=== PATIENT | female | born 1925 | race Caucasian/White ===

== ENCOUNTER 2016-08-25 19:39 | Emergency (ER) | payer MEDICARE, BC ==
[~2016-08-25] VITALS: Ht 160 cm; Wt 56.5 kg
[2016-08-25] MEDS ORDERED: ALEN1TAB48 PO (19:47)
[2016-08-25] MEDS ORDERED: ADVA250A INH (19:47)
[2016-08-25] MEDS ORDERED: ASPI81CH37 CHEW (19:47)
[2016-08-25] MEDS ORDERED: MULT1TAB84 PO (19:47)
[2016-08-25] MEDS ORDERED: OXYGEN INH (19:47)
[2016-08-25] MEDS ORDERED: LOTR5CAP2 PO (19:47)
[2016-08-25] MEDS ORDERED: SIMV40TA PO (19:47)
[2016-08-25] MEDS ORDERED: OMEP20TA PO (19:47)
[2016-08-25 19:48] VITALS: BP 106/53; PULSE 84; RESP 20; TEMP 97.7; O2SAT 94
[2016-08-25 20:40] VITALS: BP 109/49; PULSE 68; RESP 20; O2SAT 94
[2016-08-25] MEDS ORDERED: SILVER NITR/POTASSIUM NITRATE APPLICATORS TOPICAL ONE (21:30)
--- NOTE | 2016-08-25 21:40 | PD ---
HPI Chief Complaint: Nosebleed Time Seen by Provider: 21:19 Travel History International Travel<30 days: No Contact w/Intl Traveler<30days: No Traveled to known affect area: No History of Present Illness HPI 89-year-old female presents to the emergency department by private transportation the care of her clsxytod-uy-fmw for evaluation of nosebleed. Currently nosebleed has resolved. [id number] he relates most the history states that she found her hiequi-ay-rdt walking out of the bathroom with an active nosebleed and went in and saw blood and a large volume in the sink and she states she panicked called 911 and they told her to hold direct pressure put cotton balls into her nostrils and to follow-up with her primary care provider. [id number] states that the patient uses supplemental nasal cannula oxygen at night and that putting in cotton balls to stop the nosebleed was not an acceptable management plan for her. Uqctqiiu-[id number] reports that patient has been weak. Patient takes no blood thinning agent except 81 mg aspirin daily. Patient had no near-syncope or syncope. Patient denies any pain. Patient denies shortness of breath. PFSH Past Medical History Narrative Medical Dyslipidemia hypertension CVA hysterectomy one glass of alcohol daily; nursing notes reviewed Hx Anticoagulant Therapy: Yes (ASA) Cardiovascular Problems: Yes (HTN) High Cholesterol: Yes Cerebrovascular Accident: Yes (SPEECH SOMEWHAT ) Diminished Hearing: No GERD: Yes Hypertension: Yes Medical other: Yes (UMBILICAL HERNIA) Immunizations Current: Yes Tetanus Vaccination: > 5 Years Influenza Vaccination: Yes ?: Not Past Surgical History Hysterectomy: Yes Tonsillectomy: Yes Social History Alcohol Use: Yes (1 DAILY) Tobacco Use: No Substance Use: No Allergies-Medications (Allergen,Severity, Reaction): Coded Allergies: No Known Allergies (Unverified , 08/25/16) Reported Meds & Prescriptions Reported Meds & Active Scripts Active Reported [Oxygen] 2 Liter INH HS Alendronate (Alendronate Sodium) 70 Mg Tab 70 Mg PO Q7D Simvastatin 40 Mg Tab 40 Mg PO HS Omeprazole 20 Mg Tab 20 Mg PO DAILY Multivitamin Adults (Multiple Vitamins W/ Minerals) 1 Tab 1 Tab PO DAILY Aspirin Low Dose (Aspirin) 81 Mg Chew 81 Mg CHEW DAILY Lotrel (Amlodipine-Benazepril) 5-10 Mg Cap 1 Cap PO DAILY Advair Diskus Inh (Fluticasone-Salmeterol Inh) 250-50 Mcg/Blist Aer 1 Puff INH DAILY Rinse mouth after use. Review of Systems Except as stated in HPI: all other systems reviewed are Neg Physical Exam Narrative GENERAL: Well-developed elderly female in no acute distress no respiratory distress SKIN: Warm and dry. HEAD: Normocephalic. EYES: No scleral icterus. No injection or drainage. ENT: Airway is patent mucous membranes moist; posterior pharynx no active blood or thrombus noted; bilateral nares no active bleeding except for small area of fresh blood at the left nasal septum. NECK: Supple, trachea midline. No JVD or lymphadenopathy. CARDIOVASCULAR: Regular rate and rhythm without murmurs, gallops, or rubs. RESPIRATORY: Breath sounds equal bilaterally. No accessory muscle use. GASTROINTESTINAL: Abdomen soft, non-tender, nondistended. MUSCULOSKELETAL: No cyanosis, or edema. BACK: Nontender without obvious deformity. No CVA tenderness. Data Data Last Documented VS Vital Signs Date Time Temp Pulse Resp B/P Pulse Ox O2 Delivery O2 Flow Rate FiO2 08/25/16 22:35 87 20 124/89 95 08/25/16 20:40 Room Air 08/25/16 19:48 97.7 Orders Silver Nitrate Applicators (Silver Nitra (08/25/16 21:30) Complete Blood Count With Diff (08/25/16 21:19) Act Partial Throm Time (Ptt) (08/25/16 21:19) Prothrombin Time / Inr (Pt) (08/25/16 21:19) Labs Laboratory Tests Test 08/25/16 21:45 White Blood Count 8.2 TH/MM3 Red Blood Count 3.98 MIL/MM3 Hemoglobin 12.0 GM/DL Hematocrit 35.7 % Mean Corpuscular Volume 89.7 FL Mean Corpuscular Hemoglobin 30.1 PG Mean Corpuscular Hemoglobin 33.5 % Concent Red Cell Distribution Width 14.1 % Platelet Count 223 TH/MM3 Mean Platelet Volume 7.1 FL Neutrophils (%) (Auto) 61.7 % Lymphocytes (%) (Auto) 18.9 % Monocytes (%) (Auto) 14.8 % Eosinophils (%) (Auto) 3.7 % Basophils (%) (Auto) 0.9 % Neutrophils # (Auto) 5.1 TH/MM3 Lymphocytes # (Auto) 1.5 TH/MM3 Monocytes # (Auto) 1.2 TH/MM3 Eosinophils # (Auto) 0.3 TH/MM3 Basophils # (Auto) 0.1 TH/MM3 CBC Comment DIFF FINAL Differential Comment Prothrombin Time 10.8 SEC Prothromb Time International 1.0 RATIO Ratio Activated Partial 25.9 SEC Thromboplast Time MDM Medical Decision Making Medical Screen Exam Complete: Yes Emergency Medical Condition: Yes Medical Record Reviewed: Yes Differential Diagnosis Epistaxis-anterior and posterior, trauma, coagulopathy, anemia Narrative Course Patient normotensive with low normal blood pressure; patient uses supplemental nasal cannula oxygen every evening possible area of dried mucous membranes became irritated and cause area of bleed; Silver nitrate use to perform chemical cautery of spot of fresh blood which demonstrates slow ooze after direct palpation with Q-tip; good hemostasis obtained. Patient observed in the emergency department after successful chemical cautery with silver nitrate of the left anterior nasal septal mucous membrane at area of bleed. Lab values found to be in normal range. GCS 15. Vital sign stable. Patient is ready for discharge, daughter- in-law encouraged to tape nasal cannula in place overnight with clipping the left nasal prong short so that it does not aggravate the mucous membranes of the left naris. And then to resume normal nasal prong use as per her normal practice beginning tomorrow. Diagnosis Primary Impression: Epistaxis Referrals: Primary Care Physician call for appointment Patient Instructions: General Instructions Additional Instructions: Follow up with her primary care provider call office in a.m. to schedule follow- up appointment Apply direct pressure if recurrent nose bleed Return to the emergency department for any concerns or change in condition Increase fluid hydration May use [id number] nasal saline spray to each nostril as needed to keep mucous membranes moist Disposition: 01 DISCHARGE HOME Condition: Stable Lorin Wade MD Aug 25, 2016 21:40
[2016-08-25 21:53] LABS: AUTOMATED NEUTROPHIL # 5.1 TH/MM3 (1.8-7.7); BASOPHIL # 0.1 TH/MM3 (0-0.2); BASOPHIL % 0.9 % (0.0-2.0); EOSINOPHIL # 0.3 TH/MM3 (0-0.4); EOSINOPHIL % 3.7 % (0.0-4.0); HEMATOCRIT 35.7 % (35.0-46.0); HEMO FLAGS DIFF FINAL; LYMPH % 18.9 % (9.0-44.0); LYMPHOCYTE # 1.5 TH/MM3 (1.0-4.8); MEAN CELL VOLUME 89.7 FL (80.0-100.0); MEAN CORPUSCULAR HEMOGLOBIN 30.1 PG (27.0-34.0); MEAN CORPUSCULAR HGB CONC 33.5 % (32.0-36.0); MONO % 14.8 % (0.0-8.0); NEUT % 61.7 % (16.0-70.0); PLATELET COUNT 223 TH/MM3 (150-450); RED BLOOD COUNT 3.98 MIL/MM3 (4.00-5.30); RED CELL DISTRIBUTION WIDTH 14.1 % (11.6-17.2); WHITE BLOOD COUNT 8.2 TH/MM3 (4.0-11.0)
[2016-08-25 22:05] LABS: APTT (PATIENT) 25.9 SEC (24.3-30.1); PROTHROMBIN TIME - PATIENT 10.8 SEC (9.8-11.6)
[2016-08-25 22:35] VITALS: BP 124/89
== END 2016-08-25 22:35 | disposition home or self-care (01) ==
LOC: PHED 19:39
DX: R04.0 Epistaxis (principal); I10 Essential (primary) hypertension; E78.00 Pure hypercholesterolemia, unspecified; K21.9 Gastro-esophageal reflux disease without esophagitis; Z79.01 Long term (current) use of anticoagulants
CPT/HCPCS: 30901; 85025; 85610; 85730

== ENCOUNTER 2017-03-03 12:48 | Emergency (ER) | payer MEDICARE, BC ==
[~2017-03-03] VITALS: Ht 162.6 cm; Wt 60.0 kg
[~2017-03-03 12:48] MED LIST: ADVA250A INH; ALEN1TAB48 PO; ASPI81CH37 CHEW; LOTR5CAP2 PO; MULT1TAB84 PO; OMEP20TA PO; OXYGEN INH; SIMV40TA PO
[2017-03-03 12:54] VITALS: BP 145/62; PULSE 93; RESP 20; TEMP 98.1; O2SAT 98
[2017-03-03] MEDS ORDERED: OCUVCAP2 PO (13:23)
[2017-03-03] MEDS ORDERED: LACTCAP8 PO (13:23)
[2017-03-03] MEDS ORDERED: MELA5TAB15 PO (13:23)
[2017-03-03] MEDS ORDERED: TYLE325T PO (13:23)
[2017-03-03] MEDS ORDERED: CHOL5000 PO (13:23)
[2017-03-03] MEDS ORDERED: MULT-207 PO (13:23)
[2017-03-03 13:44] VITALS: O2SAT 97
--- NOTE | 2017-03-03 13:44 | PD ---
HPI Chief Complaint: Edema Time Seen by Provider: 13:39 Travel History International Travel<30 days: No Contact w/Intl Traveler<30days: No Traveled to known affect area: No History of Present Illness HPI 89-year-old female patient with history of multiple medical issues, presents to the ER today brought in by daughter because she noticed that her mother states has gotten more swollen and she was itching at it. She also complains of throat discomfort. She denies any shortness of breath, or any other symptoms. She denies being on any new medication or food exposure. She had admitted to her daughter that this has happened one other time before and it went away. Her daughter also states that she likes to suntan extensively but this is never happened before. Patient lives at an assisted care facility and staff is noticed as well. Modifying Factors: None Associated Signs & Symptoms: Facial swelling, redness, rash, itching Risk Factors: None PFSH Past Medical History Hx Anticoagulant Therapy: Yes (BABY ASA DAILY) Cardiovascular Problems: Yes (HTN, CHOL) High Cholesterol: Yes COPD: Yes Cerebrovascular Accident: Yes (TIA'S ) Diabetes: No Diminished Hearing: No GERD: Yes Hiatal Hernia: Yes Hypertension: Yes Medical other: Yes (H/O FALLS/FATIGUE/WEAKNESS) Immunizations Current: Yes Tetanus Vaccination: > 5 Years Influenza Vaccination: Yes ?: Not Past Surgical History Hysterectomy: Yes Tonsillectomy: Yes Social History Alcohol Use: Yes (1 DAILY) Tobacco Use: No Substance Use: No Allergies-Medications (Allergen,Severity, Reaction): Coded Allergies: No Known Allergies (Unverified , 03/03/17) Reported Meds & Prescriptions Reported Meds & Active Scripts Active Reported Melatonin 5 Mg Tab 3 Mg PO HS One Daily (Multiple Vitamin) 1 Tab 1 Tab PO DAILY Ocuvite Adult 50+ (Multiple Vitamins W/ Minerals) 1 Cap 1 Cap PO DAILY Vitamin D3 (Cholecalciferol) 5,000 Unit Cap 5,000 Units PO DAILY Probiotic (Lactobacillus Acidophilus) 10 Billion Cell Cap 1 Cap PO DAILY Tylenol (Acetaminophen) 325 Mg Tab 650 Mg PO Q8HR PRN [Oxygen] 2 Liter INH HS Alendronate (Alendronate Sodium) 70 Mg Tab 70 Mg PO Q7D Simvastatin 40 Mg Tab 40 Mg PO HS Omeprazole 20 Mg Tab 20 Mg PO DAILY Aspirin Low Dose (Aspirin) 81 Mg Chew 81 Mg CHEW DAILY Lotrel (Amlodipine-Benazepril) 5-10 Mg Cap 1 Cap PO DAILY Advair Diskus Inh (Fluticasone-Salmeterol Inh) 250-50 Mcg/Blist Aer 1 Puff INH DAILY Rinse mouth after use. Review of Systems Except as stated in HPI: all other systems reviewed are Neg Physical Exam Narrative GENERAL: Well-developed elderly white female patient currently in mild distress. Awake and oriented 3. SKIN: Focused skin assessment warm/dry. There is significant erythema and mild edema with areas of excoriation over the face and neck area. No signs of angioedema. HEAD: Atraumatic. Normocephalic. EYES: Pupils equal and round. No scleral icterus. No injection or drainage. ENT: Mucosa pink and moist. No erythema or exudates. No uvular edema. No uvular , palatal, or tonsillar deviation. Airway patent. No signs of angioedema. NECK: Trachea midline. No JVD. CARDIOVASCULAR: Regular rate and rhythm. No murmur appreciated. RESPIRATORY: No accessory muscle use. Clear to auscultation. Breath sounds equal bilaterally. GASTROINTESTINAL: Abdomen soft, non-tender, nondistended. Hepatic and splenic margins not palpable. MUSCULOSKELETAL: No obvious deformities. No clubbing. No cyanosis. No edema. NEUROLOGICAL: Awake and alert. No obvious cranial nerve deficits. Motor grossly within normal limits. Normal speech. PSYCHIATRIC: Appropriate mood and affect; insight and judgment normal. Data Data Last Documented VS Vital Signs Date Time Temp Pulse Resp B/P (MAP) Pulse Ox O2 Delivery O2 Flow Rate FiO2 03/03/17 14:57 76 16 129/56 (80) 97 Room Air 03/03/17 12:54 98.1 Orders Orders Complete Blood Count With Diff (03/03/17 13:39) Comprehensive Metabolic Panel (03/03/17 13:39) Ecg Monitoring (03/03/17 13:39) Iv Access Insert/Monitor (03/03/17 13:39) Oximetry (03/03/17 13:39) Diphenhydramine Inj (Benadryl Inj) (03/03/17 13:45) Methylprednisolone So Succ Inj (Solumedr (03/03/17 13:45) Famotidine Inj (Pepcid Inj) (03/03/17 13:45) Sodium Chloride 0.9% Flush (Ns Flush) (03/03/17 13:45) Ed Discharge Order (03/03/17 15:23) Labs Laboratory Tests Test 03/03/17 13:45 White Blood Count 9.2 TH/MM3 Red Blood Count 3.86 MIL/MM3 Hemoglobin 11.6 GM/DL Hematocrit 35.5 % Mean Corpuscular Volume 91.9 FL Mean Corpuscular Hemoglobin 30.0 PG Mean Corpuscular Hemoglobin Concent 32.7 % Red Cell Distribution Width 13.1 % Platelet Count 240 TH/MM3 Mean Platelet Volume 7.7 FL Neutrophils (%) (Auto) 65.4 % Lymphocytes (%) (Auto) 17.2 % Monocytes (%) (Auto) 15.5 % Eosinophils (%) (Auto) 1.6 % Basophils (%) (Auto) 0.3 % Neutrophils # (Auto) 6.1 TH/MM3 Lymphocytes # (Auto) 1.6 TH/MM3 Monocytes # (Auto) 1.4 TH/MM3 Eosinophils # (Auto) 0.1 TH/MM3 Basophils # (Auto) 0.0 TH/MM3 CBC Comment DIFF FINAL Differential Comment Blood Urea Nitrogen 18 MG/DL Creatinine 0.71 MG/DL Random Glucose 112 MG/DL Total Protein 6.8 GM/DL Albumin 3.3 GM/DL Calcium Level 8.5 MG/DL Alkaline Phosphatase 42 U/L Aspartate Amino Transf (AST/SGOT) 14 U/L Alanine Aminotransferase (ALT/SGPT) 19 U/L Total Bilirubin 0.5 MG/DL Sodium Level 138 MEQ/L Potassium Level 3.5 MEQ/L Chloride Level 102 MEQ/L Carbon Dioxide Level 27.0 MEQ/L Anion Gap 9 MEQ/L Estimat Glomerular Filtration Rate 78 ML/MIN MDM Medical Decision Making Medical Screen Exam Complete: Yes Emergency Medical Condition: Yes Medical Record Reviewed: Yes Interpretation(s) Laboratory Tests Test 03/03/17 13:45 Red Blood Count 3.86 MIL/MM3 (4.00-5.30) Monocytes (%) (Auto) 15.5 % (0.0-8.0) Monocytes # (Auto) 1.4 TH/MM3 (0-0.9) Random Glucose 112 MG/DL (74-106) Albumin 3.3 GM/DL (3.4-5.0) Alkaline Phosphatase 42 U/L (45-117) Aspartate Amino Transf (AST/SGOT) 14 U/L (15-37) Estimat Glomerular Filtration Rate 78 ML/MIN (>89) Differential Diagnosis Allergic reaction versus contact dermatitis versus sunburn Narrative Course Patient was initiated on Solu-Medrol, IV Benadryl in the ER. Patient was observed for 2 hours in the ER, and is doing well. There has not been any progression of symptoms. At this point, she does not appear to have any angioedema or airway involvement. I suspect that this could be a contact dermatitis related to some kind a product that the patient has been using. My plan would be to release the patient with follow-up to primary care doctor with further steroids and Benadryl. Return for any worsening in symptoms as needed. The plan has been discussed with the patient and daughter, and they state understanding. Diagnosis Primary Impression: Allergic reaction Med/Other Pt SpecificInfo: Prescription(s) given Scripts Diphenhydramine HCl (Benadryl Allergy) 25 Mg Cap 25 MG PO QID Y for ALLERGIC REACTION, #20 Prov: Micheal Roth MD 03/03/17 Methylprednisolone Dosepak (Medrol Dosepak) 4 Mg Dspk 4 MG PO DIRECTED, #1 DSPK 0 Refills Per Pharmacist direction Prov: Micheal Roth MD 03/03/17 Disposition: 01 DISCHARGE HOME Condition: Stable Micheal Roth MD Mar 03, 2017 13:44
[2017-03-03] MEDS ORDERED: methylPREDNISolone SOD SUCC 125 MG/2 ML VIAL IV PUSH ONE (13:45)
[2017-03-03] MEDS ORDERED: FAMOTIDINE 20 MG/2 ML VIAL IV PUSH ONE (13:45)
[2017-03-03] MEDS ORDERED: SODIUM CHLORIDE 0.9% FLUSH 10 ML FLUSH IV FLUSH PRN (13:45)
[2017-03-03] MEDS ORDERED: diphenhydrAMINE HCL 50 MG/ML VIAL IVP ONE (13:45)
[2017-03-03 13:56] LABS: AUTOMATED NEUTROPHIL # 6.1 TH/MM3 (1.8-7.7); BASOPHIL % 0.3 % (0.0-2.0); EOSINOPHIL # 0.1 TH/MM3 (0-0.4); EOSINOPHIL % 1.6 % (0.0-4.0); HEMATOCRIT 35.5 % (35.0-46.0); HEMO FLAGS DIFF FINAL; LYMPH % 17.2 % (9.0-44.0); LYMPHOCYTE # 1.6 TH/MM3 (1.0-4.8); MEAN CELL VOLUME 91.9 FL (80.0-100.0); MEAN CORPUSCULAR HGB CONC 32.7 % (32.0-36.0); MONO % 15.5 % (0.0-8.0); NEUT % 65.4 % (16.0-70.0); PLATELET COUNT 240 TH/MM3 (150-450); RED BLOOD COUNT 3.86 MIL/MM3 (4.00-5.30); RED CELL DISTRIBUTION WIDTH 13.1 % (11.6-17.2); WHITE BLOOD COUNT 9.2 TH/MM3 (4.0-11.0)
[2017-03-03 14:09] LABS: CHLORIDE 102 MEQ/L (98-107); POTASSIUM 3.5 MEQ/L (3.5-5.1); SODIUM (NA) 138 MEQ/L (136-145)
[2017-03-03 14:14] LABS: ANION GAP 9 MEQ/L (5-15)
[2017-03-03 14:15] LABS: BLOOD UREA NITROGEN 18 MG/DL (7-18)
[2017-03-03 14:17] LABS: ALT (GPT) 19 U/L (10-53)
[2017-03-03 14:18] LABS: AST (GOT) 14 U/L (15-37); GLOMERULAR FILTRATION RATE 78 ML/MIN (>89)
[2017-03-03 14:19] LABS: TOTAL BILIRUBIN ADULT 0.5 MG/DL (0.2-1.0)
[2017-03-03 14:20] LABS: ALKALINE PHOSPHATASE 42 U/L (45-117)
[2017-03-03 14:21] VITALS: PULSE 78; RESP 16; O2SAT 98
[2017-03-03 14:57] VITALS: BP 129/56; PULSE 76; RESP 16; O2SAT 97
[2017-03-03] MEDS ORDERED: MEDR4PAK PO (15:27)
[2017-03-03] MEDS ORDERED: BENA25CA4 PO (15:27)
== END 2017-03-03 15:35 | disposition home or self-care (01) ==
LOC: PHED 12:48
DX: T78.40XA Allergy, unspecified, initial encounter (principal); I10 Essential (primary) hypertension; E78.00 Pure hypercholesterolemia, unspecified; Z79.82 Long term (current) use of aspirin; Z86.79 Personal history of other diseases of the circulatory system; Z87.09 Personal history of other diseases of the respiratory system; Z87.19 Personal history of other diseases of the digestive system; Z87.39 Personal history of other diseases of the musculoskeletal system and connective tissue; X58.XXXA Exposure to other specified factors, initial encounter
CPT/HCPCS: 80053; 85025; 96374; 96375; 99284; J1200; J2930